=== PATIENT | female | born 1985 | race Caucasian/White ===

== ENCOUNTER 2017-07-06 11:22 | Emergency (ER) | payer MEDICAID ==
[~2017-07-06] VITALS: Ht 160 cm; Wt 104.0 kg
[~2017-07-06 11:22] MED LIST: AMO500 PO; IBUP-1542 PO; PROM6.25 PO
[2017-07-06 11:26] VITALS: Ht 160 cm; Wt 104.0 kg
[2017-07-06] MEDS ORDERED: IBUPROFEN 600 MG TAB PO ONE (12:30)
[2017-07-06 12:37] LABS: BASOPHILS % 0.2 % (0.0-2.0); EOSINOPHILS % 0.1 % (0.0-7.0); HEMATOCRIT 40.7 % (37.0-47.0); HEMOGLOBIN 14.2 g/dl (12.0-16.0); LYMPHOCYTES # 3.1 10^3/ul (0.8-2.9); LYMPHOCYTES % 26.2 % (15.0-51.0); MEAN CORPUSCULAR HEMOGLOBIN 29.8 pg (29.0-33.0); MEAN CORPUSCULAR HGB CONC 34.9 g/dl (32.0-37.0); MEAN CORPUSCULAR VOLUME 85.3 fl (82.0-101.0); MEAN PLATELET VOLUME 9.8 fl (7.4-10.4); MONOCYTE # 0.9 10^3/ul (0.3-0.9); NEUTROPHILS % 65.2 % (39.0-77.0); PLATELET COUNT 265 10^3/UL (140-415); RED BLOOD COUNT 4.77 10^6/ul (4.20-5.40); RED CELL DISTRIBUTION WIDTH 13.3 % (11.5-14.5); WHITE BLOOD COUNT 11.7 10^3/ul (4.8-10.8)
[2017-07-06 12:56] LABS: ALBUMIN 4.3 g/dl (3.3-4.9); ALBUMIN/GLOBULIN RATIO 1.13; BILIRUBIN,INDIRECT 0.4 mg/dl (0-1.1); BILIRUBIN,TOTAL 0.4 mg/dl (0.2-1.3); CALCIUM 9.4 mg/dl (8.4-10.2); CREATININE 0.7 mg/dl (0.44-1.00); POTASSIUM 4.3 mmol/L (3.5-5.1); TOTAL PROTEIN 8.1 g/dl (6.1-8.1)
[2017-07-06 13:28] LABS: THYROID STIMULATING HORMONE 1.13 MIU/L (0.465-4.680)
--- NOTE | 2017-07-06 13:36 | RADRPT ---
PROCEDURE: US Thyroid. CLINICAL INDICATION: Right lobe thyroid nodule. TECHNIQUE: High-resolution sonography of the thyroid was performed in the axial and sagittal plane s. COMPARISON: None. FINDINGS: The right lobe measures 6.0 x 2.7 x 2.7 cm. The left lobe measures 5.2 x 1.9 x 1.7 cm. The isthmus measures 0.2 cm. There is a large cystic nodule in the mid to lower right lobe measuring 2.3 x 2.3 x 2.1 cm. There i s no other thyroid nodule. Thyroid echogenicity is normal. The right lobe is enlarged due to the cystic nodule. The left lobe is also mildly enlarged. IMPRESSION: 1. Enlarged thyroid. 2. Large cystic nodule in the mid to lower right lobe measuring 2.3 x 2.3 x 2.1 cm. This is probab ly benign. 3. Otherwise unremarkable study. RPTAT: QQ .Arturo De Leon MD, MD Date Time Electronically viewed and signed by .Arturo De Leon MD, on 07/06/2017 13:36 .R/
[2017-07-06] MEDS ORDERED: PRED20TA PO (14:05)
[2017-07-06] MEDS ORDERED: IBUP-1542 PO (14:05)
--- NOTE | 2017-07-06 14:11 | ERD ---
ER Documentation Chief Complaint Date/Time DATE: 07/06/17 TIME: 14:[address], SWOLLEN LYMPH NODE HPI This 32-year-old female complains of a three-day history of sore throat and some swelling on the right side of her neck. She denies fevers, cough. She has been told she has some swelling on the right side of her neck before. She denies any previous thyroid problems. She has no difficulty breathing or difficulty swallowing ROS All systems reviewed and are negative except as per history of present illness. Medications Home Meds Active Scripts Prednisone* (Prednisone*) 20 Mg Tab, 40 MG PO DAILY for 5 Days, TAB Prov:ANDREA ELLISON MD 07/06/17 Ibuprofen* (Motrin*) 600 Mg Tab, 600 MG PO Q6, #20 TAB Prov:ANDREA ELLISON MD 07/06/17 Amoxicillin* (Amoxicillin*) 500 Mg Cap, 500 MG PO TID for 7 Days, CAP Prov:FANNIE GUTIÉRREZ PA-C 03/25/16 Promethazine w/Codeine* (Phenergan w/Codeine* Syrup) 5 Ml Syrup, 5 ML PO Q4H Y for COUGH, #120 ML Prov:ERICH MICHAEL PA-C 01/10/16 Ibuprofen* (Motrin*) 600 Mg Tab, 600 MG PO Q6, #30 TAB Prov:PORTIA SARABIA 07/18/15 Allergies Allergies: Coded Allergies: No Known Allergy (Unverified , 10/07/14) PMhx/Soc Medical and Surgical Hx: pt denies Medical Hx, pt denies Surgical Hx History of Surgery: No Anesthesia Reaction: No Hx Neurological Disorder: No Hx Respiratory Disorders: No Hx Cardiac Disorders: No Hx Psychiatric Problems: No Hx Miscellaneous Medical Probl: No Hx Alcohol Use: No Hx Substance Use: No Hx Tobacco Use: No Physical Exam Vitals Vital Signs Date Time Temp Pulse Resp B/P Pulse Ox O2 Delivery O2 Flow Rate FiO2 07/06/17 11:26 99.1 79 18 118/76 99 Physical Exam Const: [], Rid-mod-znyxmxzbi. Head: Atraumatic Eyes: Normal Conjunctiva ENT: Normal External Ears, Nose and Mouth. Airway patent. Neck: Full range of motion..~ No meningismus. There is a palpable right-sided thyroid mass which is palpable and moves with swallowing Resp: Clear to auscultation bilaterally Cardio: Regular rate and rhythm, no murmurs Abd: Soft, non tender, non distended. Normal bowel sounds Skin: No petechiae or rashes Back: No midline or flank tenderness Ext: No cyanosis, or edema Neur: Awake and alert Psych: Normal Mood and Affect Result Diagram: 07/06/17 1225 07/06/17 1225 Results 24 hrs Laboratory Tests Test 07/06/17 12:25 White Blood Count 11.710^3/ul Red Blood Count 4.7710^6/ul Hemoglobin 14.2g/dl Hematocrit 40.7% Mean Corpuscular Volume 85.3fl Mean Corpuscular Hemoglobin 29.8pg Mean Corpuscular Hemoglobin Concent 34.9g/dl Red Cell Distribution Width 13.3% Platelet Count 63315^3/UL Mean Platelet Volume 9.8fl Neutrophils % 65.2% Lymphocytes % 26.2% Monocytes % 8.0% Eosinophils % 0.1% Basophils % 0.2% Nucleated Red Blood Cells % 0.0/100WBC Neutrophils # (Manual) 810^3/ul Lymphocytes # 3.110^3/ul Monocytes # 0.910^3/ul Eosinophils # 0.010^3/ul Basophils # 0.010^3/ul Nucleated Red Blood Cells # 0.010^3/ul Sodium Level 142mmol/L Potassium Level 4.3mmol/L Chloride Level 100mmol/L Carbon Dioxide Level 28mmol/L Anion Gap 18 Blood Urea Nitrogen 14mg/dl Creatinine 0.70mg/dl Glucose Level 102mg/dl Calcium Level 9.4mg/dl Total Bilirubin 0.4mg/dl Direct Bilirubin 0.00mg/dl Indirect Bilirubin 0.4mg/dl Aspartate Amino Transf (AST/SGOT) 18IU/L Alanine Aminotransferase (ALT/SGPT) 31IU/L Alkaline Phosphatase 92IU/L Total Protein 8.1g/dl Albumin 4.3g/dl Globulin 3.80g/dl Albumin/Globulin Ratio 1.13 Thyroid Stimulating Hormone (TSH) 1.130MIU/L Free Thyroxine Index 3.62ug/ml Thyroxine (T4) 11.3ug/dl Triiodothyronine (T3) Uptake 32.0% Current Medications Medications (Trade) Dose Ordered Sig/Odalis Route PRN Reason Start Time Stop Time Status Last Admin Dose Admin Ibuprofen (Motrin) 600 mg ONCE ONCE PO 07/06/17 12:30 07/06/17 12:31 DC 07/06/17 12:19 Procedures/MDM Thyroid ultrasound shows a cystic mass in the right lower thyroid, possibly benign. TSH is normal. See if for slightly elevated, otherwise no acute abnormalities. Slight leukocytosis of 11.4 with a viral pattern. CMP is normal. Patient presents with right thyroid lobe cystic mass with some swelling and pain. She may have pain from the cyst or thyroiditis. We will treat with a course of prednisone and ibuprofen primary care and ENT follow-up recommendation. There is no evidence of sepsis, thyroid storm, airway obstruction, additional symptoms. The patient was stable with no new complaints during the ER course. Clinically, there is no current evidence to suggest meningitis, sepsis, acute abdomen, pneumonia, acute coronary syndrome, pulmonary embolism, or any other emergent condition appearing to require further evaluation or hospitalization. The patient should certainly return for any new or worsening symptoms per the aftercare instructions. They should otherwise follow-up with her primary care doctor for reevaluation this week. Departure Diagnosis: Primary Impression: Thyroiditis Condition: Stable Patient Instructions: Common Thyroid Problems Additional Instructions: Symptoms likely due to inflamed thyroid and cyst on thyroid. Recheck with primary doctor. Recommend ENT or endocrine evaluation for further evaluation and treatment. Recheck otherwise for new or worsening symptoms. ANDREA ELLISON MD Jul 06, 2017 14:11
== END 2017-07-06 14:18 | disposition home or self-care (01) ==
LOC: FTE 11:22
DX: E06.9 Thyroiditis, unspecified (principal)
CPT/HCPCS: 76536; 80053; 84436; 84443; 84479; 85025; Z7502; Z7610